=== PATIENT | female | born 1955 | race Caucasian/White ===

== ENCOUNTER 2017-01-19 08:00 | Emergency (ER) | payer BC, OTHER ==
[~2017-01-19] VITALS: Ht 167.6 cm; Wt 105.5 kg
[~2017-01-19 08:00] MED LIST: ASPEC325 PO; CALC500C3 PO; IBUP-1050 PO; LEVO175T3 PO
[2017-01-19 08:03] VITALS: TEMP 36.6; Ht 167.6 cm; Wt 105.5 kg
[2017-01-19] MEDS ORDERED: LEVO175T3 PO (08:15)
[2017-01-19] MEDS ORDERED: ACETAMINOPHEN 500 MG TAB PO STA (08:20)
[2017-01-19] MEDS ORDERED: OXYCODONE HCL IR 5 MG TAB (IMMEDIATE RELEASE) PO STA (08:20)
--- NOTE | 2017-01-19 09:02 | DIAGNOSTIC IMAGING REPORT ---
CT SCAN OF THE BRAIN WITHOUT IV CONTRAST CLINICAL HISTORY: Head injury. Fall. COMPARISON STUDY: No priors. TECHNIQUE: Unenhanced axial CT scan of the brain is performed from the vertex to the skull base. A dose lowering technique was utilized adhering to the principles of ALARA. CT DOSE: 1005.74 mGy.cm FINDINGS: Brain parenchyma: The brain parenchyma is normal in appearance. There is no hemorrhage, mass effect, or evidence of acute territorial ischemia by CT criteria. Clark-white matter is preserved. No extra-axial fluid collection is seen. Ventricles, sulci, cisterns: Normal in configuration. Intracranial vasculature: The visualized intracranial vasculature at the skull base is normal in appearance. Calvarium: There is no depressed calvarial fracture. Sinuses and mastoids: Mild mucosal thickening is seen in the ethmoid sinuses. The remaining visualized paranasal sinuses are clear. The mastoid air cells are well pneumatized. Orbits: The bony orbits are grossly intact. IMPRESSION: No acute intracranial abnormality. Electronically signed by: Thomas Leo M.D. 01/19/2017 9:01 AM Dictated Date/Time: 01/19/2017 8:59 AM
--- NOTE | 2017-01-19 09:06 | DIAGNOSTIC IMAGING REPORT ---
CT OF THE CERVICAL SPINE WITHOUT CONTRAST CLINICAL HISTORY: Neck pain following fall. COMPARISON STUDY: No previous studies for comparison. TECHNIQUE: Helical axial images of the cervical spine were obtained without IV contrast. Sagittal and coronal reconstructions were viewed. A dose lowering technique was utilized adhering to the principles of ALARA. FINDINGS: There is mild leftward curvature of the cervical spine which may be positional. No acute fracture is present. The craniocervical junction is intact. There is no prevertebral edema. There is moderate multilevel degenerative disc disease and facet arthrosis. No pneumothorax is shown within visualized portions of the lung apices. IMPRESSION: No acute cervical spine fracture or subluxation. Electronically signed by: Mason Mckinley M.D. 01/19/2017 9:05 AM Dictated Date/Time: 01/19/2017 9:00 AM
--- NOTE | 2017-01-19 09:16 | DIAGNOSTIC IMAGING REPORT ---
R SHOULDER MIN 2 VIEWS ROUTINE CLINICAL HISTORY: Fall, shoulder and right arm pain. COMPARISON: None FINDINGS: Alignment of the right shoulder is anatomic. There is no acute fracture. There is moderate acromioclavicular joint arthrosis. IMPRESSION: 1. No acute fracture or dislocation of the right shoulder. 2. Moderate osteoarthritis of the right acromioclavicular joint. Electronically signed by: Mason Mckinley M.D. 01/19/2017 9:15 AM Dictated Date/Time: 01/19/2017 9:14 AM
--- NOTE | 2017-01-19 09:17 | DIAGNOSTIC IMAGING REPORT ---
R HUMERUS MIN 2 VIEWS ROUTINE CLINICAL HISTORY: Fall, shoulder and right arm pain. COMPARISON: None FINDINGS: No acute fracture of the right humerus is identified. Alignment of the right shoulder and elbow is anatomic. IMPRESSION: No acute fracture of the right humerus. Electronically signed by: Mason Mckinley M.D. 01/19/2017 9:15 AM Dictated Date/Time: 01/19/2017 9:15 AM
--- NOTE | 2017-01-19 09:18 | DIAGNOSTIC IMAGING REPORT ---
R KNEE 3 VIEWS CLINICAL HISTORY: Fall, right knee pain. COMPARISON: None FINDINGS: Alignment of the right knee is anatomic. No acute fracture or joint effusion is identified. There is joint space narrowing of the patellofemoral compartment. IMPRESSION: No acute fracture or joint effusion of the right knee. Electronically signed by: Mason Mckinley M.D. 01/19/2017 9:17 AM Dictated Date/Time: 01/19/2017 9:16 AM
[2017-01-19] MEDS ORDERED: OXYC1TAB3 PO (09:41)
--- NOTE | 2017-01-19 09:42 | EMERGENCY ROOM VISIT NOTE ---
History First contact with patient: 08:08 Chief Complaint: FALL Stated Complaint: FALL/SHOULDER PAIN History of Present Illness The patient is a 61 year old female who presents to the Emergency Room via ambulance with complaints of "fall/shoulder pain". The patient states upon entering her workplace today, she tripped on the uneven pavement/sidewalk and fell somehow turning and striking the occipital region of her head, and right shoulder. She denies loss of consciousness but was dazed. She notes now she has pain in the head in her shoulder as well as her right knee. Tetanus is up- to-date. Review of Systems A complete 6-point Review of Systems was discussed with the patient, with pertinent positives and negatives listed in the History of Present Illness. All remaining Review of Systems questions can be considered negative unless otherwise specified. Past Medical/Surgical History Medical Problems: (1) Left Hip DJD Family History No pertinent. Social History Smoking Status: Current Every Day Smoker Patient is employed and lives locally. Current/Historical Medications Scheduled Levothyroxine Sodium (Levothyroxine Sodium), 175 MCG PO DAILY Scheduled PRN Oxycodone Ir (Roxicodone Ir), 1-2 TAB PO Q6 PRN for Pain Physical Exam Vital Signs Date Time Temp Pulse Resp B/P (MAP) Pulse Ox O2 Delivery O2 Flow Rate FiO2 01/19/17 10:00 84 20 147/81 98 01/19/17 08:03 36.6 75 20 147/86 97 Room Air Physical Exam VITAL SIGNS - Vital signs and nursing notes were reviewed. Stable. GENERAL -61-year-old female appearing her stated age. Communicates well with provider and answers questions appropriately. SKIN - Gross examination of the entire body surface demonstrates no lacerations to the body surface, yet a small abrasion over the right knee. HEAD - Normocephalic, Atraumatic. No Bass's Sign or Raccoon's Eyes. No depressed skull fractures palpable. EYES - PERRL with EOMI bilaterally. Without subconjunctival hemorrhage. Palpebral conjunctiva pink and moist with no injection. EARS - No deformities of external structures noted on gross examination bilaterally. No hemotympanum present. No tympanic perforation noted. Handle of malleus, umbo, cone of light, pars tensa/flaccid all easily visualized. NOSE - Midline and without cyanosis. No epistaxis or clear watery discharge noted. Septum midline without deviation. No septal hematoma noted. No overlying ecchymosis noted. MOUTH/OROPHARYNX - Without perioral cyanosis. Tongue midline with equal elevation of palate bilaterally. No blood noted in the oropharynx. No tonsillar hypertrophy, erythema, or exudates noted. No dental fractures noted. NECK - There is minimal tenderness to palpation over the cervical spinous processes. LUNGS - Chest wall symmetric without accessory muscle use, intercostals retractions, or central cyanosis. EXTREMITIES - No gross deformities noted of the extremities. There is tenderness to palpation overlying the patient's right shoulder, right anterior shoulder, and right knee. +3/5 radial and dorsalis pedis pulses palpated throughout. +5/5 strength noted in UE/LE bilaterally. NEUROLOGIC - Cranial nerves II through XII grossly intact. Sensory intact to light touch throughout. PSYCH - A&O, and cooperates fully with examiner. Pt is very pleasant and interacts well with examiner. Medical Decision & Procedures ER Provider Diagnostic Interpretation: CT SCAN OF THE BRAIN WITHOUT IV CONTRAST CLINICAL HISTORY: Head injury. Fall. COMPARISON STUDY: No priors. TECHNIQUE: Unenhanced axial CT scan of the brain is performed from the vertex to the skull base. A dose lowering technique was utilized adhering to the principles of ALARA. CT DOSE: 1005.74 mGy.cm FINDINGS: Brain parenchyma: The brain parenchyma is normal in appearance. There is no hemorrhage, mass effect, or evidence of acute territorial ischemia by CT criteria. Clark-white matter is preserved. No extra-axial fluid collection is seen. Ventricles, sulci, cisterns: Normal in configuration. Intracranial vasculature: The visualized intracranial vasculature at the skull base is normal in appearance. Calvarium: There is no depressed calvarial fracture. Sinuses and mastoids: Mild mucosal thickening is seen in the ethmoid sinuses. The remaining visualized paranasal sinuses are clear. The mastoid air cells are well pneumatized. Orbits: The bony orbits are grossly intact. IMPRESSION: No acute intracranial abnormality. Electronically signed by: Thomas Leo M.D. 01/19/2017 9:01 AM Dictated Date/Time: 01/19/2017 8:[address] OF THE CERVICAL SPINE WITHOUT CONTRAST CLINICAL HISTORY: Neck pain following fall. COMPARISON STUDY: No previous studies for comparison. TECHNIQUE: Helical axial images of the cervical spine were obtained without IV contrast. Sagittal and coronal reconstructions were viewed. A dose lowering technique was utilized adhering to the principles of ALARA. FINDINGS: There is mild leftward curvature of the cervical spine which may be positional. No acute fracture is present. The craniocervical junction is intact. There is no prevertebral edema. There is moderate multilevel degenerative disc disease and facet arthrosis. No pneumothorax is shown within visualized portions of the lung apices. IMPRESSION: No acute cervical spine fracture or subluxation. Electronically signed by: Mason Mckinley M.D. 01/19/2017 9:05 AM Dictated Date/Time: 01/19/2017 9:00 AM R SHOULDER MIN 2 VIEWS ROUTINE CLINICAL HISTORY: Fall, shoulder and right arm pain. COMPARISON: None FINDINGS: Alignment of the right shoulder is anatomic. There is no acute fracture. There is moderate acromioclavicular joint arthrosis. IMPRESSION: 1. No acute fracture or dislocation of the right shoulder. 2. Moderate osteoarthritis of the right acromioclavicular joint. Electronically signed by: Mason Mckinley M.D. 01/19/2017 9:15 AM Dictated Date/Time: 01/19/2017 9:14 AM R HUMERUS MIN 2 VIEWS ROUTINE CLINICAL HISTORY: Fall, shoulder and right arm pain. COMPARISON: None FINDINGS: No acute fracture of the right humerus is identified. Alignment of the right shoulder and elbow is anatomic. IMPRESSION: No acute fracture of the right humerus. Electronically signed by: Mason Mckinley M.D. 01/19/2017 9:15 AM Dictated Date/Time: 01/19/2017 9:15 AM R KNEE 3 VIEWS CLINICAL HISTORY: Fall, right knee pain. COMPARISON: None FINDINGS: Alignment of the right knee is anatomic. No acute fracture or joint effusion is identified. There is joint space narrowing of the patellofemoral compartment. IMPRESSION: No acute fracture or joint effusion of the right knee. Electronically signed by: Mason Mckinley M.D. 01/19/2017 9:17 AM Dictated Date/Time: 01/19/2017 9:16 AM Medications Administered Medications (Trade) Dose Ordered Sig/Luís Route Start Time Stop Time Status Last Admin Dose Admin Oxycodone HCl (Roxicodone Immediate Rel Tab) 5 mg NOW STAT PO 01/19/17 08:20 01/19/17 08:22 DC 01/19/17 08:39 5 MG Acetaminophen (Tylenol Tab) 500 mg NOW STAT PO 01/19/17 08:20 01/19/17 08:22 DC 01/19/17 08:39 500 MG Medical Decision Patient was seen and evaluated as above. After obtaining a thorough history and physical examination radiographs and CAT scans were obtained after discussing benefits versus risk. Results as above. No acute fracture dislocation. I suspect she has contusions of the sites, and some muscle strains but no underlying emergent abnormality. She is to follow-up with her family doctor/Workmen's Compensation individual regarding today's injury. She was educated upon management, was given an arm sling, declined a knee brace, had questions answered prior to discharge, and was discharged home in good condition. She was given oxycodone immediate release here as well as a prescription secondary to her pain. In evaluation treatment this patient following differential diagnoses were entertained: Intracranial abnormality, contusion, neck abnormality, fracture of the shoulder, and knee. [place] Drug Monitoring Program Search Results: patient reviewed within database, no issues identified Impression Primary Impression: Fall Additional Impression: Contusion of multiple sites Departure Information Dispostion Home / Self-Care Condition GOOD Prescriptions Oxycodone Ir (Roxicodone Ir) 5 Mg Tab 1-2 TAB PO Q6 Y for Pain, #15 TAB For Initial Treatment Prov: Robert Brown PA-C 01/19/17 Referrals No Doctor, Assigned (PCP) Byron Hart M.D. Patient Instructions My [facility] Additional Instructions You have been treated in the Emergency Department for Shoulder Pain, head pain, neck pain and knee pain. You have received pain medicine in the emergency department which impairs your ability to operate a vehicle. It is illegal for you to drive after receiving these medicines. You have been prescribed Oxy IR to be used for pain control. This is a narcotic medication. You cannot drive or consume alcohol while on this medicine. This medicine should only be used for pain that cannot be controlled with over-the- counter pain medicines. For pain control, you can use the following [id number] medicines: - Regular strength (325mg/tab) Tylenol (acetaminophen) 2 tabs every 4-6 hours as needed. Do not exceed 12 tablets in a 24 hour period. Avoid taking more than 3 grams (3000 mg) of Tylenol per day. This includes any other sources of acetaminophen you may take on a regular basis. - Regular strength (200 mg/tab) Advil (ibuprofen) 1-2 tabs every 4-6 hours as needed. Do not exceed a dose of 3200 mg per day. If this is a recent injury (<24 hrs), ice can be applied to the area of pain for the first 3 days to help decrease pain and inflammation. Please follow-up with your approved individual from your work-related injuries today. Please also follow-up with orthopedic surgeon regarding your shoulder pain. Keep the shoulder brace/sling in place until evaluated by Orthopedics. Continue to perform range of motion exercises several times per day to help prevent the development of a "frozen shoulder". Return to the Emergency Department if your current symptoms worsen despite treatment course outlined above, or if you develop any of the following symptoms : intractable pain despite aforementioned treatment course or new onset of numbness or tingling of the arm. Please return to the emergency department with any new/concerning symptoms. Problem Qualifiers
[2017-01-19 10:00] VITALS: BP 147/81; PULSE 84; O2SAT 98
== END 2017-01-19 10:23 | disposition home or self-care (01) ==
LOC: EDBD 08:00 → C.EDB 08:02
DX: T14.8 Other injury of unspecified body region (principal); W01.0XXA Fall on same level from slipping, tripping and stumbling without subsequent striking against object, initial encounter; Y92.480 Sidewalk as the place of occurrence of the external cause; Y99.0 Civilian activity done for income or pay; M16.12 Unilateral primary osteoarthritis, left hip; F17.210 Nicotine dependence, cigarettes, uncomplicated; Z79.899 Other long term (current) drug therapy

== ENCOUNTER → 2017-01-20 | Outpatient (CLI) | payer OTHER ==
[~2017-01-20] MED LIST changes: -ASPEC325 PO; -CALC500C3 PO; -IBUP-1050 PO; +OXYC1TAB3 PO
--- NOTE | 2017-01-20 14:20 | DIAGNOSTIC IMAGING REPORT ---
R ELBOW MIN 3 VIEWS ROUTINE CLINICAL HISTORY: Right elbow pain following fall. COMPARISON: None FINDINGS: The posterior fat pad is visualized and the anterior fat pad is prominent consistent with a right elbow joint effusion. This suggests an acute intra-articular fracture, likely of the right radial head. No displaced fracture is are identified. IMPRESSION: Right elbow joint effusion with suspected acute nondisplaced right radial head fracture. Electronically signed by: Mason Mckinley M.D. 01/20/2017 2:19 PM Dictated Date/Time: 01/20/2017 2:15 PM
== END | disposition home or self-care (01) ==
LOC: C.RAD1850 13:46
PROVIDERS: ATTEND Nurse Practitioner Adult Health
DX: M25.421 Effusion, right elbow (principal)